=== PATIENT | male | born 1955 | race Caucasian/White ===

== ENCOUNTER 2019-10-12 14:45 | Outpatient (RCR) | payer BC ==
[~2019-10-12 14:45] MED LIST: DIOVAN 160MG160 MG PO; KLONOPIN 0.5MG0.5 MG PO; NORVASC 10MG10 MG PO
== END 2019-11-12 07:50 | disposition home or self-care (01) ==
LOC: WSPT 14:45
DX: M54.16 Radiculopathy, lumbar region (principal)

== ENCOUNTER 2022-07-12 13:26 | Emergency (ER) | payer MEDICARE, BC ==
[~2022-07-12] VITALS: Ht 175.3 cm; Wt 84.1 kg
[2022-07-12 13:28] VITALS: TEMP 97.1
[2022-07-12 13:42] LABS: BASO # 0.1 K/mm3 (0.0-0.2); BASO % 0.7 % (0.0-2.0); EOS # 0.3 K/mm3 (0.0-0.7); EOS % 2.4 % (0.0-4.0); GRAN # 7.4 K/mm3 (1.4-6.5); GRAN % 62.2 % (42.2-75.2); HEMATOCRIT 47.5 % (42.0-52.0); HEMOGLOBIN 16.4 g/dl (13.5-18.0); LYMPH # 3.2 K/mm3 (1.2-3.4); LYMPH % 27.1 % (20.0-51.0); MEAN CELL VOLUME 87 fl (80.0-100.0); MEAN CORPUSCULAR HEMOGLOBIN 30 pg (27-31); MEAN CORPUSCULAR HGB CONC 35 g/dl (33.0-37.0); MEAN PLATELET VOLUME 11.1 fl (7.4-10.4); MONO # 0.9 K/mm3 (0.1-0.6); MONO % 7.3 % (1.7-9.3); PLATELET COUNT 242 K/mm3 (130-400); RED BLOOD COUNT 5.44 M/mm3 (4.20-5.60); REDCELL DISTRIBUTION WIDTH-CV 13.6 % (11.5-14.5)
[2022-07-12 14:10] LABS: ALANINE AMINOTRANSFERASE 17 U/L (0-55); ALBUMIN 4.3 gm/dL (3.4-4.8); ALKALINE PHOSPHATASE 60 U/L (40-150); ANION GAP 11 mmol/L (7-16); AST,SGOT 18 U/L (5-34); BILIRUBIN,TOTAL 1.4 mg/dL (0.2-1.2); BLOOD UREA NITROGEN 24 mg/dL (8-26); CALCIUM 9.5 mg/dL (8.4-10.2); CARBON DIOXIDE 24 mmol/L (23-31); CHLORIDE 108 mmol/L (98-107); CREATININE, serum 2.15 mg/dL (0.72-1.25); GLUCOSE 91 mg/dL (70-99); POTASSIUM 3.7 mmol/L (3.5-4.5); SODIUM 143 mmol/L (136-145); TOTAL PROTEIN 7.7 gm/dL (6.2-8.1)
[2022-07-12 14:24] LABS: TSH w REFLEX 1.422 uIU/mL (0.350-4.940)
[2022-07-12 14:25] LABS: TROPONIN-I < 0.010 ng/mL (0.00-0.033)
[2022-07-12 17:23] VITALS: BP 128/96; PULSE 101
== END 2022-07-12 17:25 | disposition short-term general hospital (02) ==
LOC: COL.ER 13:26
PROVIDERS: Emergency Medicine
DX: I63.9 Cerebral infarction, unspecified (principal); G83.24 Monoplegia of upper limb affecting left nondominant side; I48.20 Chronic atrial fibrillation, unspecified; R29.708 NIHSS score 8; I12.9 Hypertensive chronic kidney disease with stage 1 through stage 4 chronic kidney disease, or unspecified chronic kidney disease; N18.9 Chronic kidney disease, unspecified; Z52.4 Kidney donor
CPT/HCPCS: J3101; J7030